=== PATIENT | female | born 1945 | race Caucasian/White ===

== ENCOUNTER 2016-05-30 05:39 | Emergency (ER) | payer MEDICARE, BC ==
[~2016-05-30] VITALS: Ht 157.5 cm; Wt 102.6 kg
[~2016-05-30 05:39] MED LIST: ACTO150T PO; BUPR150T3 PO; DIOV160T60 PO; FEXO60TA PO; HYDR12.56 PO; KRIL300C PO; NORV5TAB PO; PROT40TA PO; SYNT150T PO; VITA100018 PO
[2016-05-30 05:47] VITALS: BP 132/78; PULSE 76; RESP 16; TEMP 97.9; O2SAT 100
[2016-05-30 05:59] VITALS: BP 132/78; PULSE 76; RESP 18; TEMP 97.9; O2SAT 100
[2016-05-30] MEDS ORDERED: BUPR1TAB29 PO (06:15)
[2016-05-30] MEDS ORDERED: SYNT175T PO (06:15)
[2016-05-30] MEDS ORDERED: AMLO5TAB2 PO (06:15)
[2016-05-30] MEDS ORDERED: VALS1TAB65 PO (06:15)
[2016-05-30] MEDS ORDERED: PANT40TA3 PO (06:15)
[2016-05-30] MEDS ORDERED: HYDR25TA5 PO (06:15)
[2016-05-30] MEDS ORDERED: IBUP-232 PO (06:21)
--- NOTE | 2016-05-30 06:21 | PD ---
HPI Chief Complaint: Pain: Acute or Chronic Time Seen by Provider: 06:06 Travel History International Travel<30 days: No Contact w/Intl Traveler<30days: No Traveled to known affect area: No History of Present Illness HPI The patient is a 71-year-old right-hand dominant female that complains of left shoulder pain for several days. Whenever she moves her shoulder or tries to abduct it it hurts. She denies any trauma. She does have some tenderness over the shoulder. PFSH Past Medical History Cardiovascular Problems: Yes COPD: Yes Diminished Hearing: No Hypertension: Yes Immunizations Current: Yes Thyroid Disease: Yes Tetanus Vaccination: Unknown Influenza Vaccination: Yes ?: Not Menopausal: Yes Past Surgical History Cholecystectomy: Yes Hysterectomy: Yes Tonsillectomy: Yes Social History Alcohol Use: Yes (OCCASIONAL WINE) Tobacco Use: No Substance Use: No Allergies-Medications (Allergen,Severity, Reaction): Coded Allergies: Cipro (Verified Allergy, Unknown, RASH, 05/30/16) Keflex (Verified Allergy, Unknown, diarrhea, 05/30/16) Clindamycin (Verified Adverse Reaction, Severe, diarrhea, 05/30/16) Penicillin (Verified Adverse Reaction, Severe, diarrhea, 05/30/16) Reported Meds & Prescriptions Reported Meds & Active Scripts Active Review of Systems Except as stated in HPI: all other systems reviewed are Neg Physical Exam Narrative GENERAL: Well-nourished, well-developed patient in slight apparent distress with her left shoulder discomfort. Her vital signs are normal. SKIN: Warm and dry. HEAD: Normocephalic. EYES: No scleral icterus. No injection or drainage. NECK: Supple, trachea midline. No JVD or lymphadenopathy. CARDIOVASCULAR: Regular rate and rhythm without murmurs, gallops, or rubs. RESPIRATORY: Breath sounds equal bilaterally. No accessory muscle use. GASTROINTESTINAL: Abdomen soft, non-tender, nondistended. MUSCULOSKELETAL: No cyanosis, or edema. There is some tenderness around the subacromial bursa. There is also some tenderness around the subscapular bursa. No swelling is noted. No skin rash is noted. The patient has full abduction and full range of motion actively with some pain. BACK: Nontender without obvious deformity. No CVA tenderness. Data Data Last Documented VS Vital Signs Date Time Temp Pulse Resp B/P Pulse Ox O2 Delivery O2 Flow Rate FiO2 05/30/16 06:01 76 18 05/30/16 05:59 97.9 132/78 100 MDM Medical Decision Making Medical Screen Exam Complete: Yes Emergency Medical Condition: Yes Medical Record Reviewed: Yes Differential Diagnosis Subacromial bursitis, subscapular bursitis, trapezius muscle strain Narrative Course The patient likely has a bursitis of the subacromial and subscapular areas. Plan: The patient will be given Toradol and a prescription for Motrin, 600 mg 3 times daily. She should follow-up with her primary care physician next week. She is given a sling and swath to rest the shoulder for a few days. Diagnosis Primary Impression: Subacromial bursitis Additional Instructions: Wear the sling and swath for about 5-7 days. Take the Motrin 600 mg 3 times daily. Follow-up with your primary care physician next week. Med/Other Pt SpecificInfo: Prescription(s) given Scripts Ibuprofen 600 Mg [id number] Mg PO TID #45 TAB Ref 0 Prov:Keenan Duron MD 05/30/16 Disposition: 01 DISCHARGE HOME Condition: Stable Keenan Duron MD May 30, 2016 06:21
[2016-05-30] MEDS ORDERED: KETOROLAC TROMETHAMINE 60 MG/2 ML (IM) VIAL IM ONE (06:30)
[2016-05-30 06:43] VITALS: BP 130/75
== END 2016-05-30 06:44 | disposition home or self-care (01) ==
LOC: PHED 05:39
DX: M75.52 Bursitis of left shoulder (principal); I10 Essential (primary) hypertension
CPT/HCPCS: 96372; 99283; J1885

== ENCOUNTER 2016-06-05 02:04 | Emergency (ER) | payer MEDICARE, BC ==
[~2016-06-05] VITALS: Ht 157.5 cm; Wt 104.4 kg
[~2016-06-05 02:04] MED LIST changes: -ACTO150T PO; +AMLO5TAB2 PO; -BUPR150T3 PO; +BUPR1TAB29 PO; -DIOV160T60 PO; -FEXO60TA PO; -HYDR12.56 PO; +HYDR25TA5 PO; +IBUP-232 PO; -KRIL300C PO; -NORV5TAB PO; +PANT40TA3 PO; -PROT40TA PO; -SYNT150T PO; +SYNT175T PO; +VALS1TAB65 PO; -VITA100018 PO
[2016-06-05 02:12] VITALS: BP_SYST 154; BP_SYST 54; BP_DIAS 78; PULSE 85; RESP 20; TEMP 98.9; O2SAT 97
--- NOTE | 2016-06-05 02:34 | PD ---
HPI Chief Complaint: arm pain Time Seen by Provider: 02:43 Travel History International Travel<30 days: No Contact w/Intl Traveler<30days: No Traveled to known affect area: No History of Present Illness HPI 71-year-old female presents to the emergency department by private transportation the care of her spouse for complaint of left arm pain. Patient states symptoms have been persistent and worsening for the past few days. Patient states she was seen for similar less intense pain approximately one week ago. Patient denies chest pain shortness of breath or mid scapular pain abdominal pain neck or jaw pain. Patient's had no fever no chills no nausea no vomiting. Patient denies pleuritic pain or shortness of breath or hemoptysis. Patient rates left arm pain 6/10 in intensity. Patient denies any injury or trauma. Range of motion of extremity worsen symptoms. PFSH Past Medical History Narrative Medical COPD hypertension thyroid dysfunction cholecystectomy tonsillectomy no tobacco use nursing notes reviewed Cardiovascular Problems: Yes COPD: Yes Diminished Hearing: No Hypertension: Yes Immunizations Current: Yes Thyroid Disease: Yes Menopausal: Yes Past Surgical History Cholecystectomy: Yes Hysterectomy: Yes Tonsillectomy: Yes Social History Alcohol Use: Yes (OCCASIONAL WINE) Tobacco Use: No Substance Use: No Allergies-Medications (Allergen,Severity, Reaction): Coded Allergies: Cipro (Verified Allergy, Unknown, RASH, 06/05/16) Keflex (Verified Allergy, Unknown, diarrhea, 06/05/16) Clindamycin (Verified Adverse Reaction, Severe, diarrhea, 06/05/16) Penicillin (Verified Adverse Reaction, Severe, diarrhea, 06/05/16) Reported Meds & Prescriptions Reported Meds & Active Scripts Active Percocet (Oxycodone-Acetaminophen) 7.5-325 mg Tab 1 Tab PO Q6H PRN Valtrex (Valacyclovir HCl) 1 Gm Tab 1,000 Mg PO TID 7 Days Ibuprofen 600 Mg Tab 600 Mg PO TID Reported Hydrocodone-Acetaminophen 5-325 mg Tab 1 Tab PO Q6H PRN Pantoprazole (Pantoprazole Sodium) 40 Mg Tab 40 Mg PO DAILY Hydrochlorothiazide 25 Mg Tab 25 Mg PO DAILY Valsartan 160 Mg Tab 160 Mg PO DAILY Amlodipine (Amlodipine Besylate) 5 Mg Tab 5 Mg PO DAILY Synthroid (Levothyroxine Sodium) 175 Mcg Tab 175 Mcg PO DAILY Bupropion HCl ER 12 HR (Bupropion HCl) 150 Mg Tab 150 Mg PO Q12HR Review of Systems Except as stated in HPI: all other systems reviewed are Neg Physical Exam Narrative GENERAL: Well-developed well-nourished female in no acute distress no respiratory distress SKIN: Warm and dry. HEAD: Normocephalic. EYES: No scleral icterus. No injection or drainage. NECK: Supple, trachea midline. No JVD or lymphadenopathy. CARDIOVASCULAR: Regular rate and rhythm without murmurs, gallops, or rubs. RESPIRATORY: Breath sounds equal bilaterally. No accessory muscle use. GASTROINTESTINAL: Abdomen soft, non-tender, nondistended. MUSCULOSKELETAL: No cyanosis, or edema. Dermatomal distribution of left upper extremity vesicular rash. BACK: Nontender without obvious deformity. No CVA tenderness. Data Data Last Documented VS Orders Ondansetron Odt (Zofran Odt) (06/05/16 02:45) Oxycodone-Acetamin 7.5-325 Mg (Percocet (06/05/16 02:45) MDM Medical Decision Making Medical Screen Exam Complete: Yes Emergency Medical Condition: Yes Medical Record Reviewed: Yes Differential Diagnosis shingles, bursitis, atypical chest pain Narrative Course Patient with vesicular rash of the upper extremity on the left with dermatomal distribution consistent with shingles Patient given prescription for pain medication and Valtrex Diagnosis Primary Impression: Shingles Qualified Code: B02.9 - Herpes zoster without complication Referrals: Primary Care Physician 2 days Patient Instructions: General Instructions, Narcotic given in the ED, Shingles (ED) Additional Instructions: Take pain medication as prescribed Complete course of antiviral agent as prescribed May use ibuprofen per package directions 600 mg as often as every 6 hours as needed for pain associated with inflammation avoid high-dose ibuprofen use for greater than 3-4 days Avoid persons that have not been exposed to chickenpox or shingles in the past specifically people who are immunocompromised such is elderly, cancer patients, or females Return to the emergency department for any concerns or change in condition Follow-up with your primary care provider call office Monday a.m. to schedule follow-up appointment Med/Other Pt SpecificInfo: Prescription(s) given Scripts Oxycodone-Acetaminophen (Percocet)7.5-325 mg Tab1 Tab PO Q6H PRN (PAIN GREATER THAN 6) #15 TAB Ref 0 Prov:Alia Olivera MD 06/05/16 Valacyclovir (Valtrex)1 Gm Tab1,000 Mg PO TID 7 Days Ref 0 Prov:Alai Olivera MD 06/05/16 Disposition: 01 DISCHARGE HOME Condition: Stable Alia Olivera MD Jun 05, 2016 02:34
[2016-06-05] MEDS ORDERED: ONDANSETRON ODT 4 MG TAB PO ONE (02:45)
[2016-06-05] MEDS ORDERED: oxyCODONE/ACETAMINOPHEN 7.5 MG/325 MG TAB PO ONE (02:45)
[2016-06-05] MEDS ORDERED: HYDR-3516 PO (02:54)
[2016-06-05 03:07] VITALS: BP 149/66; PULSE 78; RESP 18; O2SAT 97
[2016-06-05] MEDS ORDERED: VALT1TAB PO (03:36)
[2016-06-05] MEDS ORDERED: PERC7.5T13 PO (03:36)
== END 2016-06-05 04:05 | disposition home or self-care (01) ==
LOC: PHED 02:04
DX: B02.9 Zoster without complications (principal); I10 Essential (primary) hypertension; E07.9 Disorder of thyroid, unspecified; Z87.09 Personal history of other diseases of the respiratory system; Z86.79 Personal history of other diseases of the circulatory system
CPT/HCPCS: 99283

== ENCOUNTER 2018-01-29 05:10 | Inpatient (IN) ==
[2018-01-29] MEDS ORDERED: Chlorhexidine 4% Topical 120 APPLIC/120 ML Bottle TOPICAL SCH (05:45)
[2018-01-29] MEDS ORDERED: Chlorhexidine Gluconate 2% 1 Pack (2 Cloths) TOPICAL ONE (05:45)
[2018-01-29] MEDS ORDERED: Sodium Chlor 0.9% Inj 40 ML, Bupivacaine Liposo PF 1.3% Inj 20 ML P-ARTICULR SCH ×2 (05:45)
[2018-01-29] MEDS ORDERED: Sodium Chlor 0.9% Inj 500 ML IV.CONT ONE (05:45)
[2018-01-29] MEDS ORDERED: Metoprolol Tartrate 25 MG Tablet PO ONE (05:45)
[2018-01-29] MEDS ORDERED: TRANEXAMIC ACID IV.SIG SCH ×2 (06:00→08:40)
[2018-01-29] MEDS ORDERED: ceFAZolin 2 GM Premix Inj 2 GM/100 ML BAG IV.SIG SCH (06:00)
[2018-01-29] MEDS ORDERED: SODIUM CHLOR 0.9% IV.SIG SCH ×2 (06:00→08:40)
[2018-01-29] MEDS ORDERED: Sodium Chlor 0.9% Inj 0 ML ONE (06:17)
[2018-01-29] MEDS ORDERED: fentaNYL Citrate Inj 100 MCG/2 ML Ampul ONE (06:17)
[2018-01-29] MEDS ORDERED: Famotidine PF Inj 20 MG/2 ML Vial ONE (06:18)
[2018-01-29] MEDS ORDERED: Dexmedetomidine Inj 200 MCG/2 ML Vial ONE (06:18)
[2018-01-29] MEDS ORDERED: Propofol Inj 500 MG/50 ML Vial ONE (06:18)
[2018-01-29] MEDS ORDERED: Bupivacaine/Dextrose 0.75% Inj 2 ML Ampul ONE (06:18)
[2018-01-29] MEDS ORDERED: fentaNYL Citrate Inj 250 MCG/5 ML Ampul ONE (06:44)
[2018-01-29] MEDS ORDERED: Neostigmine Inj 5 MG/5 ML Syringe IV.PUSH ONE (07:31)
[2018-01-29] MEDS ORDERED: Phenylephrine/NS 1000 MCG/10ML Syringe IV.PUSH ONE (07:31)
[2018-01-29] MEDS ORDERED: Lidocaine PF 1% Inj 5 ML Syringe INFILTRATN ONE (07:31)
[2018-01-29] MEDS ORDERED: Glycopyrrolate Inj 1 MG/5 ML Syringe IV.PUSH ONE (07:31)
[2018-01-29] MEDS ORDERED: Morphine Sulfate Inj 2 MG/ML Vial IV.PUSH PRN (09:37)
[2018-01-29] MEDS ORDERED: Acetaminophen 325 MG Tablet PO PRN (09:37)
[2018-01-29] MEDS ORDERED: Post-op Orders (for Pharmacy) OTHER STA (09:37)
[2018-01-29] MEDS ORDERED: Tranexamic Acid Inj 0 MG in Sodium Chlor 0.9% Inj 100 ML IV.SIG ONE (09:37)
[2018-01-29] MEDS ORDERED: Bisacodyl 10 MG Supp RECTAL PRN (09:37)
[2018-01-29] MEDS ORDERED: Aluminum/Magnesium/Simethacone Susp 30 ML UDC PO PRN (09:37)
[2018-01-29] MEDS ORDERED: Zolpidem Tartrate 5 MG Tablet PO PRN (09:37)
--- NOTE | 2018-01-29 09:40 | P.DCO ---
- Physical Therapy Physical Therapy: Gait training Hip: Total hip, Protocol: Right, Posterior hip precautions, Progress to weight bearing Canvas Knee Splint: When in bed with 2 pillows between thighs Right Lower Extremity Weight Bearing: Weight bearing as tolerated Right Lower Extremity Range of Motion: Active ROM - Nursing Nursing: Dressing changes Dressing changes: Daily dressing change, Coverderm/Primapore Additional instructions: Do not remove Dermabond Prineo. - Certification Need for Home Health services: I have seen patient Daisy Mon on 01/29/18. My clinical findings support the need for the requested home health care services because: Need for Home Health Services: Deconditioned with increased weakness, Limited ability to care for self, High risk of falls Homebound Certification: I certify that my clinical findings support that this patient is homebound because: Homebound Certification: Post-op weakness, Unsteady gait/balance, Unsafe to leave home unassisted
--- NOTE | 2018-01-29 09:46 | P.OP ---
- Preoperative Diagnosis (1) Primary osteoarthritis of right hip - Postoperative Diagnosis (1) Primary osteoarthritis of right hip Date of procedure: 01/29/18 Procedure: Right total hip arthroplasty using Colin prosthesis. Anesthesia: DIAMANTEAclarice (Johnny Griffith) Surgeon: Juancarlos Garrison MD Station Supervisor: SERA Mak Estimated blood loss (mL): 650 Pathology: none sent Operation and Findings: Indications and Findings: This 72-year-old woman has had long-standing pain in the right hip at least the last 18 months. This is worsened progressively such that she has an ambulation tolerance of only 300 feet with pain. She has stiffness and difficulty with activities of daily living such as standing from a seated position entering and exiting vehicles ambulation in general. She has been treated with anti-inflammatory agents, analgesics, exercise aids with no improvement in her symptoms. Physical findings showed limited range of motion with the right tenderness on motion. X-rays showed loss of articular cartilage to bone with osteophytes and subchondral sclerosis. Operative findings: There is severe osteoarthritis in the right hip with osteophytes, subchondral sclerosis and tearing and maceration of the acetabular labrum. Implants: The acetabular component was a Trident 2 cluster shell size 52 mm outer diameter with a 36 mm inner diameter 0 X3 polyethylene liner. The femoral component was Accolade 2 size 4 x 132. The femoral head was Biolox Delta, 36 mm outer diameter, -5 mm neck length. The patient was brought to the clean air operating suite and a general endotracheal anesthetic was administered. The patient was positioned into a lateral position with the operative hip up on a Biomet lateral positioner. The hip and lower extremity were prepped with alcohol, Hibiclens and ChloraPrep and draped in the usual manner with the hip draped free. Patient received prophylactic antibiotics preoperatively. The patient also received tranexamic acid preoperatively. An appropriate timeout procedure was carried out. An incision was made from the midportion of the greater trochanter proximally and posteriorly paralleling the fibers of the gluteus jadiel. The incision was deepened through subcutaneous tissues down to the fascia joseph and gluteus fascia. The gluteus fascia was then split longitudinally in line with its fibers up to the upper portion of the fascia joseph. With wound towels in place, the Charnley retractor was inserted. The sciatic nerve was identified and protected throughout the procedure. Dissection was then carried down to the interval between the gluteus minimus and the piriformis. A retractor was inserted. The piriformis and obturator conjoined tendon was released from the greater trochanter and reflected off the capsule. A capsulotomy was made longitudinally along the femoral neck to the base of the femoral neck and then curved distally along the posterior aspect of the greater trochanter. The hip was internally rotated. Further release of the external rotators was carried out exposing the hip. The hip was dislocated. The femoral neck was transected at the appropriate level using the oscillating saw placement of appropriate retractors. The femoral head was removed. Preparation of the femur was initiated with a box osteotome followed by a curet to identify the medullary canal. Broaching was then initiated with the size 0 broach and went in 1 size increments up to size 4. The broach handle was removed. The femoral neck was then trimmed with a calcar planar. Attention was then directed to the acetabulum. Soft tissues were debrided from the acetabulum. Retractors were placed about the acetabulum. Reaming was then initiated with the 43 mm millimeter reamer and went in 1-2 mm increments up to the 49 millimeter diameter reamer. A trial reduction with the 50 millimeter trial prosthesis was carried out. When this was deemed to be appropriate, the trial prosthesis was removed. The acetabulum was irrigated and cleaned. The actual prosthesis as noted above was impacted into place and seated appropriately. Drill holes were made and sounded. Appropriate sized screws were inserted to stabilize the acetabulum further. The liner as noted above was inserted into the acetabular shell and impacted into place. Osteophytes were trimmed from the acetabulum. Local anesthetic was administered throughout the area of the acetabulum and anterior aspect of the femur. The trial neck was placed on the broach for the above-noted prosthesis. The femoral head trial was placed onto the femoral neck . A trial reduction was carried out. Adjustment was made as needed. The stability, leg length and motion were excellent. There was no pistoning. The trial prosthesis was removed. The broach was removed. The femoral component was impacted into the medullary canal of the femur after irrigation and suctioning. When this was appropriately seated a trial reduction was again carried out with the trial prosthesis. There was no pistoning. The leg length was appropriate. The stability and motion were excellent. The trial prosthesis was then removed. After cleaning and drying the trunion of the femoral component, the above-noted femoral head was impacted onto the trunnion. The hip was reduced. The stability and mobility were again checked along with leg lengths as noted above. The hip was positioned appropriately and closure commenced after the remainder of the local anesthetic was injected throughout the hip. The external rotators and capsule were repaired with #1 Vicryl interrupted transosseous sutures with a Krakw technique to reattach the external rotators and capsule to the posterior aspect of the greater trochanter. The capsule itself on the superior aspect was closed with #1 Vicryl interrupted [id number] sutures. The sciatic nerve was inspected. The fascia joseph and gluteus fascia were repaired with #1 Vicryl interrupted [id number] sutures. The subcutaneous tissues were closed with 2-0 Vicryl interrupted simple sutures with buried knots. The skin was closed with a continuous subcuticular closure of 4-0 Monocryl. The wound was then approximated with Dermabond Prineo. A dry sterile dressing was applied to the hip. A knee immobilizer was applied to the leg. The patient was transferred from the operating room to the recovery room in satisfactory condition having tolerated the procedure well. Counts are correct. Specimens: None. Estimated blood loss: 650 mL
[2018-01-29] MEDS ORDERED: *morphine SULFATE 4 MG/ML PERIprocedure ONLY ONE ×2 (10:25→10:49)
[2018-01-29] MEDS: Ketorolac Inj 30 MG/ML (IVP) Vial IV.PUSH SCH ×3 (10:35→22:07)
[2018-01-29] MEDS ORDERED: *Meperidine Inj 25 MG/ML Vial PERIprocedural Use ONLY ONE (10:38)
[2018-01-29] MEDS ORDERED: diphenhydrAMINE HCl 50 MG/ML VIAL IV.PUSH ONE (10:58)
--- NOTE | 2018-01-29 11:15 | XR ---
EXAM DATE: 01/29/2018 11:01 AM EDT AGE/SEX: 72 years / Female INDICATIONS: Post-op right hip. CLINICAL DATA: This is the patient's initial encounter. Patient reports that signs and symptoms have been present for 1 day and indicates a pain score of Nonresponsive. MEDICAL/SURGICAL HISTORY: None. None. COMPARISON: No prior exams available for comparison. FINDINGS: The patient is status post a total hip arthroplasty. Prosthesis is well-seated. Alignment is anatomic . A fracture is not appreciated. CONCLUSION: Anatomic alignment. Jayy Aguirre MD FACR Electronically signed by: Jayy Aguirre MD 01/29/2018 11:14 AM EDT
--- NOTE | 2018-01-29 15:03 | P.CON ---
History of Present Illness Reason for Consult: evaluate and manage multiple medical conditions which include acute kid Primary Care Provider: UNKNOWN Chief Complaint: right hip pain History of Present Illness: This is a 72-year-old female with a history of right hip osteoarthritis. She has been complaining of progressive right hip pain affecting activities of daily living especially ambulation. Underwent hip arthroplasty today by Dr. LEONORA Garrison who requested consultation to evaluate and manage multiple medical conditions. Anesthesia records reviewed she was hemodynamically stable. Received 2500 mL of crystalloid and EBL of 650 mL. At this time she has no complaints. She has history of hypertension controlled on Norvasc, losartan and triamterene/hydrochlorothiazide which is also for fluid retention. She also has depression managed on Wellbutrin, hypothyroidism on synthroid which was recently adjusted and GERD controlled on Protonix. All other systems reviewed negative PMFSH - History History Provided By: Patient - Medical History Medical History: Medical History (Last Reviewed 01/29/18 @ 14:52 by Harjit John MD) COPD (chronic obstructive pulmonary disease) Dental root implant present Depression GERD (gastroesophageal reflux disease) Hypertension Osteoarthritis Skin cancer Thyroid disease - Surgical History Surgical History: Surgical History (Last Reviewed 01/29/18 @ 14:53 by Harjit John MD) H/O hysterectomy with oophorectomy History of cataract extraction with lens replacement Hx of cholecystectomy Hx of tonsillectomy - Family History Family History: Family History (Last Updated 01/29/18 @ 14:53 by Harjit John MD) Other Family history of diabetes mellitus Family history of hypertension - Tobacco History Second Hand Smoke Exposure: No Tobacco Use In Past 30 Days: No Smoking Status: Former smoker Tobacco Type: Cigarettes - Alcohol History How Often Do You Have a Drink Containing Alcohol: 2 to 3 times a week - Substance Use History Substance History: No History of Abuse - Travel History Recent Travel in the [place] Within the Last 8 Weeks: No Recent Travel Out of the Country Within the Last 8 Weeks: No Medications and Allergies Active Medications: Active Medications Acetaminophen (Tylenol) 650 mg PO Q6H PRN PRN Reason: Pain Less Than 3 On Scale Hydrocodone Bitart/Acetaminophen ([place] 7.5/325) 1 tab PO Q4H PRN PRN Reason: PAIN SCALE 4 TO 6 MODERATE Hydrocodone Bitart/Acetaminophen ([place] 7.5/325) 2 tab PO Q6H PRN PRN Reason: PAIN SCALE 7 TO 10 SEVERE Al Hydrox/Mg Hydrox/Simethicone (Mag-Al Plus Susp Liq) 30 ml PO Q6H PRN PRN Reason: INDIGESTION Al Hydroxide/Mg Hydroxide (Milk Of Magnesia Liq) 30 ml PO BID PRN PRN Reason: Mild Constipation Amlodipine Besylate (Norvasc) 5 mg PO DAILY [facility] Aspirin (Aspirin Chew) 81 mg PO BID [facility] Bisacodyl (Dulcolax Supp) 10 mg RECTAL DAILY PRN PRN Reason: SEVERE CONSITIPATION Bupropion HCl (Wellbutrin Sr) 150 mg PO DAILY [facility] Chlorhexidine Gluconate (Hibiclens 4% Topical) 1 applicatio TOPICAL ONCE [facility] Stop: 02/02/18 05:44 Sodium Chloride 40 ml/ (Bupivacaine Liposome 20 ml) 0 ml P-ARTICULR ONCE [facility] Last Admin: 01/29/18 07:40 Dose: 60 bag Diphenhydramine HCl (Benadryl) 25 mg PO Q6H PRN PRN Reason: ITCHING Lactated Ringer's (Lr 1000 Ml Inj) 1,000 mls @ 30 mls/hr IV.CONT .Q24H ONE Stop: 01/30/18 05:44 Last Infusion: 01/29/18 08:43 Dose: Infused Sodium Chloride (Ns Inj) 500 mls @ 30 mls/hr IV.CONT .[id number] ONE Stop: 01/29/18 22:24 Last Admin: 01/29/18 06:17 Dose: Not Given Tranexamic Acid 999 mg/ Sodium (Chloride) 109.99 mls @ 200 mls/hr IV.SIG ONCE [facility] Stop: 01/30/18 05:59 Last Infusion: 01/29/18 07:41 Dose: Infused Tranexamic Acid 999 mg/ Sodium (Chloride) 109.99 mls @ 200 mls/hr IV.SIG ONCE [facility] Stop: 01/30/18 08:39 Last Admin: 01/29/18 10:04 Dose: 200 mls/hr Cefazolin/Sodium Chloride (Ancef 2 Gm Premix Inj) 2 gm in 100 mls @ 200 mls/hr IV.SIG ONCE [facility] Stop: 01/29/18 21:00 Last Infusion: 01/29/18 07:04 Dose: Infused Cefazolin Sodium 1,000 mg/ (Sodium Chloride) 100 mls @ 200 mls/hr IV.SIG Q6H [facility] Stop: 01/30/18 01:29 Last Admin: 01/29/18 13:45 Dose: 200 mls/hr Lactated Ringer's (Lr 1000 Ml Inj) 1,000 mls @ 80 mls/hr IV.CONT .[id number] [facility] Last Admin: 01/29/18 10:30 Dose: 80 mls/hr Ketorolac Tromethamine (Toradol Inj) 15 mg IV.PUSH Q6H [facility] Stop: 01/31/18 04:01 Last Admin: 01/29/18 10:35 Dose: 15 mg Lactulose (Lactulose Liq) 30 ml PO DAILY PRN PRN Reason: SEVERE CONSITIPATION Levothyroxine Sodium (Synthroid) 150 mcg PO DAILY@0600 [facility] Miscellaneous Information (Mis Nursing Information) 1 each OTHER UNSCH PRN PRN Reason: SEE LABEL COMMENTS Stop: 01/30/18 10:25 Morphine Sulfate (Morphine Inj) 2 mg IV.PUSH Q3H PRN PRN Reason: BREAKTHROUGH PAIN Ondansetron HCl (Zofran Odt) 4 mg PO Q6H PRN PRN Reason: NAUSEA OR VOMITING Pantoprazole Sodium (Protonix) 40 mg PO DAILY [facility] Valsartan 160 Mg (Tablet) 1 each PO DAILY [facility] Senna/Docusate Sodium (Lori-Colace) 1 tab PO BID [facility] Sennosides (Senokot) 17.2 mg PO BID PRN PRN Reason: Moderate Constipation Sodium Chloride (Ns Flush) 2 ml IV.FLUSH BID [facility] Sodium Chloride (Ns Flush) 2 ml IV.FLUSH PRN PRN PRN Reason: FLUSH AFTER USING IV ACCESS Triamterene/HCTZ (Dyazide 37.5/25 Mg) 1 cap PO DAILY [facility] Zolpidem Tartrate (Ambien) 5 mg PO HS PRN PRN Reason: INSOMNIA Allergies Allergy/AdvReac Type Severity Reaction Status Date / Time cephalexin Allergy Severe diarrhea Verified 01/29/18 05:59 ciprofloxacin Allergy Severe RASH Verified 01/29/18 05:59 clindamycin AdvReac Severe diarrhea Verified 01/15/18 09:38 penicillin G AdvReac Severe diarrhea Verified 01/15/18 09:38 Home Medications Medication Instructions Recorded Confirmed Type amlodipine 5 mg PO DAILY 01/15/18 01/29/18 History bupropion HCl 150 mg PO QAM 01/15/18 01/29/18 History levothyroxine [Synthroid] 150 mcg PO DAILY 01/15/18 01/29/18 History pantoprazole 40 mg PO DAILY 01/15/18 01/29/18 History triamterene-hydrochlorothiazid 1 cap PO DAILY 01/15/18 01/29/18 History valsartan 160 mg PO DAILY 01/15/18 01/29/18 History Physical Exam Vital signs: Vital Signs 01/29/18 06:02 01/29/18 10:15 01/29/18 10:30 Temperature 97 F L 97.2 F L Pulse Rate 69 79 70 Respiratory Rate 18 18 18 Blood Pressure 127/60 107/56 L 100/58 L Pulse Oximetry 97 100 98 01/29/18 10:45 01/29/18 11:00 01/29/18 12:00 Temperature Pulse Rate 71 69 65 Respiratory Rate 20 16 20 Blood Pressure 100/55 L 104/54 L 95/52 L Pulse Oximetry 98 100 98 01/29/18 13:00 01/29/18 13:45 Temperature 98.0 F Pulse Rate 59 L 67 Respiratory Rate 18 16 Blood Pressure 104/53 L 98/53 L Pulse Oximetry 98 98 Intake & Output 01/28/18 01/29/18 01/29/18 18:59 06:59 18:59 Intake Total 2799.99 / 2799.99 Output Total 650 / 650 Balance 2149.99 / 2149.99 Weight 99.9 kg Intake: IV 1209.99 / 1209.99 LR 1000 mL Inj 1,000 ML @ 30 1000 / 1000 mls/hr IV.CONT .Q24H ONE Rx#: [id number] Cyklokapron Inj 999 MG In NS 109.99 / 109.99 Inj 100 ML @ 200 mls/hr IV.SIG ONCE [facility] Rx#:[id number] Ancef 2 GM Premix Inj 2 gm In 100 / 100 100 ml @ 200 mls/hr IV.SIG ONCE [facility] Rx#:[id number] Oral 200 / 200 Anesthesia Amount 1290 / 1290 Other 100 / 100 Output: Estimated Blood Loss 650 / 650 Other: Weight On Admission 99.9 kg Narrative: GENERAL: Well-developed, obese in no distress SKIN: Warm and dry. HEAD: Atraumatic. Normocephalic. EYES: Pupils equal and round. No scleral icterus. No injection or drainage. ENT: No nasal bleeding or discharge. Mucous membranes pink and moist. NECK: Trachea midline. No JVD. CARDIOVASCULAR: Regular rate and rhythm. RESPIRATORY: No accessory muscle use. Clear to auscultation. Breath sounds equal bilaterally. GASTROINTESTINAL: Abdomen soft, non-tender, nondistended. MUSCULOSKELETAL: Extremities without clubbing, cyanosis but with bilateral lower extremity 3 edema. No obvious deformities. Right hip with dry dressing. Right lower extremity in a CKS left lower extremity with SCD NEUROLOGICAL: Awake and alert. No obvious cranial nerve deficits. Motor grossly within normal limits. Five out of 5 muscle strength in the arms and legs. Normal speech. PSYCHIATRIC: Appropriate mood and affect; insight and judgment normal. Assessment and Plan - Plan This is a 72-year-old female with a history of right hip osteoarthritis. She has been complaining of progressive right hip pain affecting activities of daily living especially ambulation. Underwent hip arthroplasty by Dr. LEONORA Garrison who requested consultation to evaluate and manage multiple medical conditions. Anesthesia records reviewed she was hemodynamically stable. Received 2500 mL of crystalloid and EBL of 650 mL. Preop evaluation reviewed CBC unremarkable: Unremarkable. Remarkable for creatinine of 1.6. Urinalysis unremarkable. EKG independently reviewed by me with sinus bradycardia poor R- wave progression no QRS voltage. Right hip arthroplasty. Stable continue postoperative care with PT, wound care , DVT prophylaxis with aspirin and pain management with Lortab and IV morphine. Incentive spirometry. Check hemoglobin and hematocrit to monitor for anemia Hypertension controlled on Norvasc, losartan and triamterene/ hydrochlorothiazide which is also for fluid retention. Monitor. Depression managed on Wellbutrin, will continue Hypothyroidism on Synthroid which was recently adjusted. We will continue GERD controlled on Protonix. Acute kidney injury seen on recent lab work. Patient has no urinary symptoms. Check BMP in the morning. Avoid nephrotoxins Discharge Planning: HHC vs rehab
[2018-01-29] MEDS: Senna/Docusate Sodium 8.6/50 MG Tablet PO SCH (22:07)
[2018-01-30] MEDS: Levothyroxine 150 MCG Tablet PO SCH (05:06)
[2018-01-30] MEDS: Ketorolac Inj 30 MG/ML (IVP) Vial IV.PUSH SCH ×4 (05:09→21:30)
--- NOTE | 2018-01-30 06:12 | P.PNOP ---
Subjective Interval history: Postop day #1 She is doing relatively well. She does have some pain. She is not sure if she is going to be ready to go home today. Physical therapy reports that the ambulation distance was 35 feet. Physical Exam Vital signs: Vital Signs 01/29/18 10:15 01/29/18 10:30 01/29/18 10:45 Temperature 97.2 F L Pulse Rate 79 70 71 Respiratory Rate 18 18 20 Blood Pressure 107/56 L 100/58 L 100/55 L Pulse Oximetry 100 98 98 01/29/18 11:00 01/29/18 12:00 01/29/18 13:00 Temperature Pulse Rate 69 65 59 L Respiratory Rate 16 20 18 Blood Pressure 104/54 L 95/52 L 104/53 L Pulse Oximetry 100 98 98 01/29/18 13:45 01/29/18 14:30 01/29/18 16:27 Temperature 98.0 F 97.3 F L Pulse Rate 67 72 60 Respiratory Rate 16 18 14 Blood Pressure 98/53 L 111/55 L 97/52 L Pulse Oximetry 98 97 97 01/29/18 21:19 01/29/18 23:05 01/30/18 03:21 Temperature 98.3 F 97.4 F L 97.7 F Pulse Rate 69 90 71 Respiratory Rate 17 18 18 Blood Pressure 128/64 111/53 L 124/58 L Pulse Oximetry 100 98 96 Intake & Output 01/29/18 01/29/18 01/30/18 06:59 18:59 06:59 Intake Total 3009.98 / 3009.98 1680 / 1680 Output Total 650 / 650 Balance 2359.98 / 2359.98 1680 / 1680 Weight 99.9 kg 99.9 kg 99.9 kg Intake: IV 1419.98 / 1419.98 1200 / 1200 LR 1000 mL Inj 1,000 ML @ 80 1000 / 1000 1000 / 1000 mls/hr IV.CONT .[id number] [facility] Rx# :[id number] Cyklokapron Inj 999 MG In NS 219.98 / 219.98 Inj 100 ML @ 200 mls/hr IV.SIG ONCE [facility] Rx#:[id number] Ancef 2 GM Premix Inj 2 gm In 100 / 100 100 ml @ 200 mls/hr IV.SIG ONCE [facility] Rx#:[id number] Ancef Inj 1,000 MG In NS Inj 100 / 100 200 / 200 100 ML @ 200 mls/hr IV.SIG Q6H [facility] Rx#:[id number] Oral 200 / 200 480 / 480 Anesthesia Amount 1290 / 1290 Other 100 / 100 Output: Estimated Blood Loss 650 / 650 Other: # Voids 2 Date of Last Bowel Movement 01/28/18 # Bowel Movements 0 Weight On Admission 99.9 kg Narrative: She is resting comfortably, supine in bed. The neurovascular status is intact. The dressing is dry and intact. Results - Labs Laboratory Results - last 24 hr 01/29/18 05:50 Blood Type A Positive Blood Type Recheck Required Antibody Screen Negative - Imaging Impressions Hip X-Ray 01/29/18 09:35 CONCLUSION: Anatomic alignment. Jayy Aguirre MD FACR - Procedures Right total hip arthroplasty using Colin prosthesis. Assessment and Plan - Problem List (1) Status post total replacement of right hip Code(s): Z96.641 - Presence of right artificial hip joint Status: Acute Onset Date: ~01/29/18 Plan: Continue postop care and PT. - Assessment and Plan Condition: Good. Orthopedically stable. DVT prophylaxis: TEDs, aspirin, sequentials. Discharge plans: Home with home health care. An appointment was scheduled through the office. Prescriptions: [place] 7.5/325; Patient is having significant pain caused by a total hip arthroplasty which will last more than 3 days. Trial of Tylenol has not helped. I believe that it is medically necessary to treat patients pain because it is affecting patients ability to participate in postoperative rehabilitation and perform activities of daily living in a comfortable and efficient manner.
--- NOTE | 2018-01-30 09:33 | P.DS ---
Date of admission: 01/29/18 05:10 Primary care physician: UNKNOWN Attending physician on discharge: Juancarlos Garrison Anticipated date of discharge: 02/01/18 Brief History from admission: This 72-year-old woman has had long-standing arthritis in her right hip nonresponsive to conservative measures as detailed in the history and physical examination. Her physical findings showed limited range of motion in the right hip with crepitation on motion, tenderness and an antalgic gait. X-rays showed severe arthritis with loss of articular cartilage to [id number]. DS: Diagnosis - Discharge Diagnosis (1) Status post total replacement of right hip Status: Acute Diagnosis: Principal (2) Primary osteoarthritis of right hip Status: Chronic Diagnosis: Principal (3) Obesity, morbid, BMI 40.0-49.9 Status: Chronic Diagnosis: Secondary (4) Hypothyroidism Status: Chronic Diagnosis: Secondary DS: Medications - Discharge Medications Prescriptions: hydrocodone-acetaminophen 1 tab PO Q4H PRN 7 Days #42 tab PRN Reason: Pain (Scale Score 7-10) DS: Summary Hospital Course: The patient was admitted as noted above. The above noted operative procedure was carried out that day. Preoperatively prophylactic antibiotics were administered Ancef according to protocol. These were continued postoperatively. The patient also received tranexamic acid to help with hemostasis according to protocol. In the postanesthesia care unit mechanical methods of DVT prophylaxis in the form of ISIS stockings and sequentials were initiated. Physical therapy was initiated on the day of surgery. On postoperative day #1 physical therapy continued. DVT prophylaxis with aspirin 81 mg was initiated at this time. The patient continued physical therapy throughout the hospitalization. The distance walked and range of motion improved throughout the hospitalization. The patient was discharged on postoperative day [] with the disposition being to home with home health care. An appointment for follow-up was made prior to admission. - Time Spent with Patient Total time spent providing and/or coordinating discharge services: Greater than 30 minutes - Quality: VTE Deep Vein Thrombosis/Pulmonary Embolism Present on Admission: No Exam Vital signs: Vital Signs 01/29/18 10:15 01/29/18 10:30 01/29/18 10:45 Temperature 97.2 F L Pulse Rate 79 70 71 Respiratory Rate 18 18 20 Blood Pressure 107/56 L 100/58 L 100/55 L Pulse Oximetry 100 98 98 01/29/18 11:00 01/29/18 12:00 01/29/18 13:00 Temperature Pulse Rate 69 65 59 L Respiratory Rate 16 20 18 Blood Pressure 104/54 L 95/52 L 104/53 L Pulse Oximetry 100 98 98 01/29/18 13:45 01/29/18 14:30 01/29/18 16:27 Temperature 98.0 F 97.3 F L Pulse Rate 67 72 60 Respiratory Rate 16 18 14 Blood Pressure 98/53 L 111/55 L 97/52 L Pulse Oximetry 98 97 97 01/29/18 21:19 01/29/18 23:05 01/30/18 03:21 Temperature 98.3 F 97.4 F L 97.7 F Pulse Rate 69 90 71 Respiratory Rate 17 18 18 Blood Pressure 128/64 111/53 L 124/58 L Pulse Oximetry 100 98 96 01/30/18 08:00 Temperature 97.4 F L Pulse Rate 59 L Respiratory Rate 20 Blood Pressure 131/59 L Pulse Oximetry 100 Intake & Output 01/29/18 01/30/18 01/30/18 18:59 06:59 18:59 Intake Total 3009.98 / 3009.98 1680 / 1680 Output Total 650 / 650 Balance 2359.98 / 2359.98 1680 / 1680 Weight 99.9 kg 99.9 kg Intake: IV 1419.98 / 1419.98 1200 / 1200 LR 1000 mL Inj 1,000 ML @ 80 1000 / 1000 1000 / 1000 mls/hr IV.CONT .[id number] [facility] Rx# :[id number] Cyklokapron Inj 999 MG In NS 219.98 / 219.98 Inj 100 ML @ 200 mls/hr IV.SIG ONCE [facility] Rx#:[id number] Ancef 2 GM Premix Inj 2 gm In 100 / 100 100 ml @ 200 mls/hr IV.SIG ONCE [facility] Rx#:[id number] Ancef Inj 1,000 MG In NS Inj 100 / 100 200 / 200 100 ML @ 200 mls/hr IV.SIG Q6H [facility] Rx#:[id number] Oral 200 / 200 480 / 480 Anesthesia Amount 1290 / 1290 Other 100 / 100 Output: Estimated Blood Loss 650 / 650 Other: # Voids 2 Date of Last Bowel Movement 01/28/18 # Bowel Movements 0 Narrative: She is resting comfortably, supine in bed. The dressing is dry and intact. The neurovascular status is intact. Results Procedures completed during hospitalization: Right total hip arthroplasty using Colin prosthesis. - Impressions ITS Impressions Hip X-Ray 01/29/18 09:35 CONCLUSION: Anatomic alignment. Jayy Aguirre MD FACR Discharge Plan - Discharge Disposition Patient Disposition: W/Home Health Service - Discharge Condition Condition: Stable - Discharge Order Discharge Orders: Discharge Order (Routine); Ordered 01/30/18 Ordered By: Juancarlos Garrison - Discharge Details Anticipated Discharge Date: 01/30/18 - Physicians Team Primary Care Provider: UNKNOWN, Attending Provider: Juancarlos Garrison Other Providers: Harjit John MD - Rxs /Orders / Referrals /Forms Prescriptions: New aspirin 81 mg Tablet,Chewable 81 mg PO BID RF: 0 hydrocodone-acetaminophen 7.5-325 mg Tablet 1 tab PO Q4H PRN (Reason: Pain (Scale Score 7-10)) 7 Days Qty: 42 RF: 0 Continue amlodipine 5 mg Tablet 5 mg PO DAILY bupropion HCl 150 mg Tablet Extended Release 24 Hr 150 mg PO QAM levothyroxine [Synthroid] 150 mcg Tablet 150 mcg PO DAILY pantoprazole 40 mg Tablet,Delayed Release (Dr/Ec) 40 mg PO DAILY valsartan 160 mg Tablet 160 mg PO DAILY Discontinued triamterene-hydrochlorothiazid 37.5-25 mg Capsule 1 cap PO DAILY Ambulatory Orders / Order Sets / DME: Basic Metabolic Panel (Routine) Timeframe: 1 Week Location: Determined by Patient Ordered By: Harjit John Referrals: Juancarlos Garrison MD [Physician] - See Instructions UNKNOWN, [Primary Care Provider] - See Instructions - Discharge Instructions Patient Printed Instructions: Hydrocodone/Acetaminophen (By mouth), Aspirin ( By mouth), How to Use an Incentive Spirometer (ED), How to Choose and Use a Walker (GEN), Precautions after Total Joint Replacement Surgery (ED), ISIS Hose ( DC), Total Hip Replacement (DC) Additional Instructions: PLEASE TAKE YOUR NORCO FOR PAIN NEEDED. PLEASE TAKE ASPIRIN YOUR BLOOD THINNER. PLEASE REPORT TO YOUR SURGEON IF YOU HAVE ANY UNRELIEVED FEVERS AND/OR WORSENING PAIN ESPECIALLY IN YOUR CALF AREA. - Post Discharge Care Plan Care Plan Goals: Discharge Care Plan Goals for Total Hip Replacement You had a hip replacement surgery. This means your natural hip was replaced with an artificial joint (prosthesis). You may be recovering at home or in a rehabilitation facility. Either way, you must take care of your new hip. Here are some goals to help you heal well. Directions to Meet your Goals: 1. Activity & Exercises: * Take pain medicine as directed by your doctor. * Dont drive until your doctor says its OK. And never drive while taking opioid pain medicine. * Wear the support stockings you were given in the hospital as directed by your surgeon. * Dont sit for more than 30 to 45 minutes at one time. * Dont lean forward while sitting. * Dont cross your legs. * Keep your feet flat on the floor. Dont turn your foot or leg inward. This stresses your hip joint. * Use an elevated toilet seat for 6 weeks after surgery. * Nap if you are tired, but dont stay in bed all day. * Sit on a firm cushion when you ride in a car and avoid sitting too low. Try not to bend your hip too much when getting in and out of the car. 2. Prevent Falls/Injury: * Follow your doctors orders regarding how much weight to put on the affected leg. * Dont bend at the hip when you bend over. Don't bend at the waist to put on socks and shoes. And avoid picking up items from the floor. * Use a cane, crutches, a walker, or handrails until your balance, flexibility, and strength improve. And remember to ask for help from others when you need it. * Free up your hands so that you can use them to keep balance. Use a ozzy pack , apron, or pockets to carry things. * Arrange your household to keep the items you need handy. Keep everything else out of the way. * Remove items that may cause you to fall, such as throw rugs and electrical cords. * Use nonslip bath mats, grab bars, an elevated toilet seat, and a shower chair in your bathroom * Sit on a shower stool or chair when you shower to keep from falling. 3. Precautions: * Prevent infection. Any infection will need to be treated immediately. Call your doctor right away if you think you might have an infection. * Tell your dentist that you have an artificial joint and take antibiotics as prescribed before any dental work. * Tell all your healthcare providers about your artificial joint before any medical procedure. * Maintain a healthy weight. Get help to lose any extra pounds. Added body weight puts stress on the joints. 4. Incision Care: * Prevent infection by washing your hands often. If an infection occurs, it will need to be treated right away. * Call your doctor right away if you think you may have an infection. Symptoms include a fever or an incision that leaks white, green, or yellow fluid. * Don't soak your incision in water until your doctor says its OK. This means no hot tubs, bathtubs, or swimming pools. * Follow your doctor's instructions for changing the dressing. * Dont rub the incision, or apply creams or lotions to it. * If you notice any redness or drainage around the bandage site, contact your surgeon's office immediately. 5. Follow-Up: Do Not miss your follow-up appointment. Keep up with all your appointments and yearly check ups When to call your doctor: Call your doctor right away if you have: Hip pain gets worse Pain or swelling in your calf or leg not related to your incision Tenderness or redness in your calf Fever of 100.4F (38C) or higher, or as directed by your healthcare provider Shaking chills Swelling or redness at the incision site gets worse Fluid draining from the incision Call 911: Call 911 right away if you have: Chest pain Shortness of breath Any pain or tenderness in your calf
[2018-01-30] MEDS: buPROPion 150 MG 12 HR Tablet PO SCH (09:43)
[2018-01-30] MEDS: amLODIPine 5 MG Tablet PO SCH (09:43)
[2018-01-30] MEDS: Senna/Docusate Sodium 8.6/50 MG Tablet PO SCH ×2 (09:43→20:41)
[2018-01-30 09:54] LABS: Hematocrit 31.7 % (35.0-46.0); Hemoglobin 10.6 gm/dL (11.6-15.3)
[2018-01-30 10:27] LABS: Calcium 7.8 mg/dL (8.5-10.1); Carbon Dioxide 27.2 meq/L (21.0-32.0); Magnesium 1.9 mg/dL (1.5-2.5); Potassium 3.7 meq/L (3.5-5.1)
[2018-01-30 10:59] LABS: CKMB Percent 1.4 % (0.0-4.0)
--- NOTE | 2018-01-30 12:11 | P.PN ---
Subjective Interval history: Follow-up hypertension and kidney disease. Patient OOB to chair. She does not want to be dc today Physical Exam Vital signs: Vital Signs 01/29/18 13:00 01/29/18 13:45 01/29/18 14:30 Temperature 98.0 F 97.3 F L Pulse Rate 59 L 67 72 Respiratory Rate 18 16 18 Blood Pressure 104/53 L 98/53 L 111/55 L Pulse Oximetry 98 98 97 01/29/18 16:27 01/29/18 21:19 01/29/18 23:05 Temperature 98.3 F 97.4 F L Pulse Rate 60 69 90 Respiratory Rate 14 17 18 Blood Pressure 97/52 L 128/64 111/53 L Pulse Oximetry 97 100 98 01/30/18 03:21 01/30/18 08:00 Temperature 97.7 F 97.4 F L Pulse Rate 71 59 L Respiratory Rate 18 20 Blood Pressure 124/58 L 131/59 L Pulse Oximetry 96 100 Intake & Output 01/29/18 01/30/18 01/30/18 18:59 06:59 18:59 Intake Total 3009.98 / 3009.98 1680 / 1680 800 / 800 Output Total 650 / 650 Balance 2359.98 / 2359.98 1680 / 1680 800 / 800 Weight 99.9 kg 99.9 kg Intake: IV 1419.98 / 1419.98 1200 / 1200 800 / 800 LR 1000 mL Inj 1,000 ML @ 80 1000 / 1000 1000 / 1000 800 / 800 mls/hr IV.CONT .[id number] [facility] Rx# :[id number] Cyklokapron Inj 999 MG In NS 219.98 / 219.98 Inj 100 ML @ 200 mls/hr IV.SIG ONCE [facility] Rx#:[id number] Ancef 2 GM Premix Inj 2 gm In 100 / 100 100 ml @ 200 mls/hr IV.SIG ONCE [facility] Rx#:[id number] Ancef Inj 1,000 MG In NS Inj 100 / 100 200 / 200 100 ML @ 200 mls/hr IV.SIG Q6H [facility] Rx#:[id number] Oral 200 / 200 480 / 480 Anesthesia Amount 1290 / 1290 Other 100 / 100 Output: Estimated Blood Loss 650 / 650 Other: # Voids 2 Date of Last Bowel Movement 01/28/18 # Bowel Movements 0 Narrative: GENERAL: Well-developed obese in no distress SKIN: Warm and dry. CARDIOVASCULAR: Regular rate and rhythm. RESPIRATORY: No accessory muscle use. Clear to auscultation. Breath sounds equal bilaterally. GASTROINTESTINAL: Abdomen soft, non-tender, nondistended. MUSCULOSKELETAL: Extremities without clubbing, cyanosis but with bilateral lower extremity pitting edema. No obvious deformities. NEUROLOGICAL: Awake and alert. No obvious cranial nerve deficits. Motor grossly within normal limits. Five out of 5 muscle strength in the arms and legs. Normal speech. PSYCHIATRIC: Appropriate mood and affect; insight and judgment normal. Results - Labs CBC & Chem 7: 01/30/18 09:02 01/30/18 09:02 Laboratory Results - last 24 hr 01/30/18 01/30/18 09:02 09:02 Hgb 10.6 L Hct 31.7 L Sodium 134 L Potassium 3.7 Chloride 99 Carbon Dioxide 27.2 Anion Gap 8 BUN 30 H Creatinine 1.35 H Estimated GFR 38 L Random Glucose 111 H Calcium 7.8 L Magnesium 1.9 Total Creatine Kinase 1041 H CK-MB (CK-2) 15.0 H CK-MB (CK-2) % 1.4 - Procedures Right total hip arthroplasty using [place] prosthesis. Assessment and Plan - Plan This is a 72-year-old female with a history of right hip osteoarthritis. She has been complaining of progressive right hip pain affecting activities of daily living especially ambulation. Underwent hip arthroplasty by Dr. LEONORA Garrison who requested consultation to evaluate and manage multiple medical conditions. Anesthesia records reviewed she was hemodynamically stable. Received 2500 mL of crystalloid and EBL of 650 mL. Preop evaluation reviewed CBC unremarkable: Unremarkable. Remarkable for creatinine of 1.6. Urinalysis unremarkable. EKG independently reviewed by me with sinus bradycardia poor R- wave progression no QRS voltage. Right hip arthroplasty. Stable continue postoperative care with PT, wound care , DVT prophylaxis with aspirin and pain management with Lortab and IV morphine. Incentive spirometry. Check hemoglobin and hematocrit to monitor for anemia Acute kidney injury. CK slightly up from recent surgery. Nonoliguric. This is stable. Avoid nephrotoxins continue to hold ARB and diuretic. Avoid nephrotoxins Hypertension . Stable on Norvasc continue to monitor. Depression managed on Wellbutrin, will continue Hypothyroidism on Synthroid which was recently adjusted. We will continue GERD controlled on Protonix. Discharge Planning: [facility]
[2018-01-31] MEDS: Ketorolac Inj 30 MG/ML (IVP) Vial IV.PUSH SCH (03:12)
[2018-01-31 05:33] LABS: Hematocrit 30.4 % (35.0-46.0); Hemoglobin 10.2 gm/dL (11.6-15.3)
[2018-01-31 06:00] LABS: Calcium 8.4 mg/dL (8.5-10.1); Carbon Dioxide 27.1 meq/L (21.0-32.0); Magnesium 2.4 mg/dL (1.5-2.5); Potassium 4.4 meq/L (3.5-5.1)
[2018-01-31] MEDS: Levothyroxine 150 MCG Tablet PO SCH (06:14)
[2018-01-31 06:29] LABS: CKMB Percent 0.8 % (0.0-4.0)
--- NOTE | 2018-01-31 07:22 | P.PNOP ---
Subjective Interval history: Postop day #2 As far as her knee is concerned, she is doing well. She has minimal complaints related to it. She does have complaints of abdominal discomfort secondary to the use of a laxative. She has been to the bathroom for the past 2 hours. Physical therapy reports that the ambulation distance was 12 feet, and 50 feet in the morning and 80 feet in the afternoon. She is not certain whether or not she should go home or to a halfway facility since she does not feel that her can help care for her. Physical Exam Vital signs: Vital Signs 01/30/18 08:00 01/30/18 12:00 01/30/18 16:00 Temperature 97.4 F L 97.7 F 97.7 F Pulse Rate 59 L 63 63 Respiratory Rate 20 20 18 Blood Pressure 131/59 L 104/51 L 109/55 L Pulse Oximetry 100 100 100 01/30/18 20:00 01/31/18 00:00 01/31/18 04:00 Temperature 97.5 F L 97.3 F L 97.4 F L Pulse Rate 63 65 57 L Respiratory Rate 18 18 18 Blood Pressure 107/53 L 130/63 99/50 L Pulse Oximetry 99 99 96 Intake & Output 01/30/18 01/31/18 01/31/18 18:59 06:59 18:59 Intake Total 1220 / 1220 450 / 450 Balance 1220 / 1220 450 / 450 Weight 99.9 kg Intake: IV 800 / 800 LR 1000 mL Inj 1,000 ML @ 80 800 / 800 mls/hr IV.CONT .[id number] [facility] Rx# :[id number] Oral 420 / 420 450 / 450 Other: # Voids 6 1 Date of Last Bowel Movement 01/31/18 # Bowel Movements 1 1 Narrative: She is resting comfortably, supine in bed. The neurovascular status is intact. The dressing is dry and intact. Results - Labs CBC & Chem 7: 01/31/18 03:54 01/31/18 03:54 Laboratory Results - last 24 hr 01/30/18 01/30/18 01/31/18 09:02 09:02 03:54 Hgb 10.6 L 10.2 L Hct 31.7 L 30.4 L Sodium 134 L Potassium 3.7 Chloride 99 Carbon Dioxide 27.2 Anion Gap 8 BUN 30 H Creatinine 1.35 H Estimated GFR 38 L Random Glucose 111 H Calcium 7.8 L Magnesium 1.9 Total Creatine Kinase 1041 H CK-MB (CK-2) 15.0 H CK-MB (CK-2) % 1.4 01/31/18 03:54 Hgb Hct Sodium 132 L Potassium 4.4 Chloride 96 L Carbon Dioxide 27.1 Anion Gap 9 BUN 33 H Creatinine 1.45 H Estimated GFR 35 L Random Glucose 98 Calcium 8.4 L Magnesium 2.4 Total Creatine Kinase 1073 H CK-MB (CK-2) 9.0 H CK-MB (CK-2) % 0.8 - Imaging Hip X-Ray 01/29/18 09:35 CONCLUSION: Anatomic alignment. Jayy Aguirre MD FACR - Procedures Right total hip arthroplasty using Colin prosthesis. Assessment and Plan - Ortho Post Op Day # 2 - Problem List (1) Status post total replacement of right hip Code(s): Z96.641 - Presence of right artificial hip joint Status: Acute Onset Date: ~01/29/18 (2) Primary osteoarthritis of right hip Code(s): M16.11 - Unilateral primary osteoarthritis, right hip Status: Chronic - Assessment and Plan Condition: Good. Orthopedically stable. DVT prophylaxis: TEDs, aspirin, sequentials. Discharge plans: Home with home health care versus a halfway facility. An appointment was scheduled through the office. Prescriptions: [place] 7.5/325; Patient is having significant pain caused by a total hip arthroplasty which will last more than 3 days. Trial of Tylenol has not helped. I believe that it is medically necessary to treat patients pain because it is affecting patients ability to participate in postoperative rehabilitation and perform activities of daily living in a comfortable and efficient manner.
[2018-01-31] MEDS: buPROPion 150 MG 12 HR Tablet PO SCH (08:04)
[2018-01-31] MEDS: Sod Chloride 0.9% Inj 1,000 ML IV.CONT SCH ×2 (09:00→20:03)
--- NOTE | 2018-01-31 09:23 | P.PN ---
Subjective Interval history: Follow-up acute kidney injury. States she does not feel good. Earlier while she was on the commode she had dizziness, nausea and diaphoresis. She also complained of abdominal cramping. BP at that time was 99/50. Physical Exam Vital signs: Vital Signs 01/30/18 12:00 01/30/18 16:00 01/30/18 20:00 Temperature 97.7 F 97.7 F 97.5 F L Pulse Rate 63 63 63 Respiratory Rate 20 18 18 Blood Pressure 104/51 L 109/55 L 107/53 L Pulse Oximetry 100 100 99 01/31/18 00:00 01/31/18 04:00 Temperature 97.3 F L 97.4 F L Pulse Rate 65 57 L Respiratory Rate 18 18 Blood Pressure 130/63 99/50 L Pulse Oximetry 99 96 Intake & Output 01/30/18 01/31/18 01/31/18 18:59 06:59 18:59 Intake Total 1220 / 1220 450 / 450 Balance 1220 / 1220 450 / 450 Weight 99.9 kg Intake: IV 800 / 800 LR 1000 mL Inj 1,000 ML @ 80 800 / 800 mls/hr IV.CONT .[id number] [facility] Rx# :[id number] Oral 420 / 420 450 / 450 Other: # Voids 6 1 Date of Last Bowel Movement 01/31/18 # Bowel Movements 1 1 Narrative: GENERAL: Well-developed, well-nourished in no distress SKIN: Warm and dry. CARDIOVASCULAR: Regular rate and rhythm. RESPIRATORY: No accessory muscle use. Clear to auscultation. Breath sounds equal bilaterally. GASTROINTESTINAL: Abdomen soft, non-tender, nondistended. MUSCULOSKELETAL: Extremities without clubbing, cyanosis with bilateral lower extremity pitting edema. Dry dressing right hip. No obvious deformities. NEUROLOGICAL: Awake and alert. No obvious cranial nerve deficits. Motor grossly within normal limits. Five out of 5 muscle strength in the arms and legs. Normal speech. PSYCHIATRIC: Appropriate mood and affect; insight and judgment normal. Results - Labs CBC & Chem 7: 01/31/18 03:54 01/31/18 03:54 Laboratory Results - last 24 hr 01/30/18 01/30/18 01/31/18 09:02 09:02 03:54 Hgb 10.6 L 10.2 L Hct 31.7 L 30.4 L Sodium 134 L Potassium 3.7 Chloride 99 Carbon Dioxide 27.2 Anion Gap 8 BUN 30 H Creatinine 1.35 H Estimated GFR 38 L Random Glucose 111 H Calcium 7.8 L Magnesium 1.9 Total Creatine Kinase 1041 H CK-MB (CK-2) 15.0 H CK-MB (CK-2) % 1.4 01/31/18 03:54 Hgb Hct Sodium 132 L Potassium 4.4 Chloride 96 L Carbon Dioxide 27.1 Anion Gap 9 BUN 33 H Creatinine 1.45 H Estimated GFR 35 L Random Glucose 98 Calcium 8.4 L Magnesium 2.4 Total Creatine Kinase 1073 H CK-MB (CK-2) 9.0 H CK-MB (CK-2) % 0.8 - Procedures Right total hip arthroplasty using [place] prosthesis. Assessment and Plan - Plan This is a 72-year-old female with a history of right hip osteoarthritis. She has been complaining of progressive right hip pain affecting activities of daily living especially ambulation. Underwent hip arthroplasty by Dr. LEONORA Garrison who requested consultation to evaluate and manage multiple medical conditions. Anesthesia records reviewed she was hemodynamically stable. Received 2500 mL of crystalloid and EBL of 650 mL. Preop evaluation reviewed CBC unremarkable: Unremarkable. Remarkable for creatinine of 1.6. Urinalysis unremarkable. EKG independently reviewed by me with sinus bradycardia poor R- wave progression no QRS voltage. Right hip arthroplasty. Stable continue postoperative care with PT, wound care , DVT prophylaxis with aspirin and pain management with Lortab and IV morphine. Incentive spirometry. Check hemoglobin and hematocrit to monitor for anemia Acute kidney injury. Creatinine slightly worse today. She also has mild rhabdomyolysis. Nonoliguric. In addition patient probably had a vasovagal episode this morning. Start IV hydration and repeat BMP and CK in the morning. Avoid nephrotoxins continue to hold ARB and diuretic. Hypertension . BP slightly low this morning Norvasc not given. Continue to monitor. Depression managed on Wellbutrin, will continue Hypothyroidism on Synthroid which was recently adjusted. We will continue GERD controlled on Protonix. Discharge Planning: C vs rehab
[2018-01-31] MEDS: Senna/Docusate Sodium 8.6/50 MG Tablet PO SCH ×2 (09:38→20:04)
[2018-01-31] MEDS: amLODIPine 5 MG Tablet PO SCH (09:38)
[2018-02-01] MEDS: Levothyroxine 150 MCG Tablet PO SCH (05:00)
[2018-02-01] MEDS: Sod Chloride 0.9% Inj 1,000 ML IV.CONT SCH (05:00)
[2018-02-01 06:25] LABS: Carbon Dioxide 25.8 meq/L (21.0-32.0); Magnesium 2.5 mg/dL (1.5-2.5); Potassium 4.4 meq/L (3.5-5.1)
--- NOTE | 2018-02-01 06:44 | P.PNOP ---
Subjective Interval history: Postop day #3 She is doing better today than she was yesterday. She indicates that she is uncomfortable with going home and will be going to rehab at a senior care facility. Physical therapy reports that the ambulation distance was 15 feet. Physical Exam Vital signs: Vital Signs 01/31/18 08:00 01/31/18 12:00 01/31/18 16:00 Temperature 97.4 F L 97.8 F 97.8 F Pulse Rate 66 78 71 Respiratory Rate 16 16 16 Blood Pressure 100/62 108/52 L 113/49 L Pulse Oximetry 96 95 97 01/31/18 20:00 02/01/18 00:00 02/01/18 04:00 Temperature 98.1 F 98.4 F 98.2 F Pulse Rate 83 71 79 Respiratory Rate 18 17 18 Blood Pressure 106/53 L 100/46 L 103/50 L Pulse Oximetry 100 95 98 Intake & Output 01/31/18 01/31/18 02/01/18 06:59 18:59 06:59 Intake Total 450 / 450 1480 / 1480 Balance 450 / 450 1480 / 1480 Weight 99.9 kg 99.7 kg Intake: IV 1000 / 1000 NS Inj 1,000 ML @ 100 mls/hr IV 1000 / 1000 .CONT .Q10H [facility] Rx#:[id number] Oral 450 / 450 480 / 480 Other: # Voids 1 3 3 Date of Last Bowel Movement 01/31/18 01/31/18 01/31/18 # Bowel Movements 1 3 Narrative: She is resting comfortably, supine in bed. The dressing is dry and intact. There is no erythema nor induration. Results - Labs CBC & Chem 7: 01/31/18 03:54 02/01/18 03:41 Laboratory Results - last 24 hr 02/01/18 03:41 Sodium 130 L Potassium 4.4 Chloride 95 L Carbon Dioxide 25.8 Anion Gap 9 BUN 28 H Creatinine 1.29 H Estimated GFR 41 L Random Glucose 89 Calcium 8.0 L Magnesium 2.5 Total Creatine Kinase 766 H - Procedures Right total hip arthroplasty using Colin prosthesis. Assessment and Plan - Ortho Post Op Day # 3 - Problem List (1) Status post total replacement of right hip Code(s): Z96.641 - Presence of right artificial hip joint Status: Acute Onset Date: ~01/29/18 (2) Primary osteoarthritis of right hip Code(s): M16.11 - Unilateral primary osteoarthritis, right hip Status: Chronic (3) Obesity, morbid, BMI 40.0-49.9 Code(s): E66.01 - Morbid (severe) obesity due to excess calories Status: Chronic (4) Hypothyroidism Code(s): E03.9 - Hypothyroidism, unspecified Status: Chronic - Assessment and Plan Condition: Good. Orthopedically stable. DVT prophylaxis: TEDs, aspirin, sequentials. Discharge plans: [facility] facility for rehabilitation. An appointment was scheduled through the office. Prescriptions: [place] 7.5/325; Patient is having significant pain caused by a total hip arthroplasty which will last more than 3 days. Trial of Tylenol has not helped. I believe that it is medically necessary to treat patients pain because it is affecting patients ability to participate in postoperative rehabilitation and perform activities of daily living in a comfortable and efficient manner.
[2018-02-01 06:46] LABS: CKMB Percent 0.5 % (0.0-4.0); Creatine Kinase MB 3.9 ng/mL (0.5-3.6)
[2018-02-01] MEDS: buPROPion 150 MG 12 HR Tablet PO SCH (08:40)
[2018-02-01] MEDS: amLODIPine 5 MG Tablet PO SCH (09:13)
[2018-02-01] MEDS: Senna/Docusate Sodium 8.6/50 MG Tablet PO SCH (09:13)
== END 2018-02-01 10:55 ==
LOC: HSDI 05:10 → N06 14:38
PROVIDERS: ADMIT Orthopaedic Surgery; ATTEND Orthopaedic Surgery